=== PATIENT | female | born 2000 | race Two or more races ===

== ENCOUNTER → 2024-02-18 | Outpatient (REF) | payer OTHER ==
[2024-02-18 17:40] LABS: RSV AMPLIFICATION NEGATIVE (NEGATIVE)
== END ==
LOC: M LAB REF 16:25
PROVIDERS: ATTEND Nurse Practitioner Family
DX: J06.9 Acute upper respiratory infection, unspecified (principal)

== ENCOUNTER 2024-03-26 16:30 | Emergency (ER) | payer OTHER ==
[~2024-03-26] VITALS: Ht 162.6 cm; Wt 74.6 kg
[2024-03-26 20:32] VITALS: TEMP 98
[2024-03-26 22:46] VITALS: BP 134/79; O2SAT 100
== END 2024-03-26 23:20 | disposition home or self-care (01) ==
LOC: M ED 16:30
DX: O20.0 Threatened abortion (principal)

== ENCOUNTER → 2024-07-04 | Outpatient (REF) | payer OTHER ==
[2024-07-04 15:18] LABS: Trichomonas vaginalis (AMP) NOT DETECTED (NEGATIVE)
[2024-07-04 15:42] LABS: GC DNA AMPLIFICATION NEGATIVE (NEGATIVE)
== END ==
LOC: M PLALAB 10:07
PROVIDERS: ATTEND Nurse Practitioner Family
DX: Z34.81 Encounter for supervision of other normal pregnancy, first trimester (principal)

== ENCOUNTER → 2024-07-04 | Outpatient (CLI) | payer OTHER ==
[2024-07-04 14:40] LABS: HEMATOCRIT 41.4 % (36.0-47.0); HEMOGLOBIN 13.7 g/dl (12.0-15.5); MEAN CORPUSCULAR HEMOGLOBIN 29.9 pg (27.0-33.0); MEAN CORPUSCULAR HGB CONC 33.1 g/dl (32.0-36.5); MEAN CORPUSCULAR VOLUME 90.4 fl (80.0-96.0); PLATELET COUNT, AUTOMATED 224 10^3/uL (150-450); RED BLOOD COUNT 4.58 10^6/uL (4.00-5.40)
[2024-07-04 15:11] LABS: HIV 1&2 SCREEN NEGATIVE (NEGATIVE)
[2024-07-04 15:20] LABS: HEPATITIS C VIRUS ABY INDEX < 0.02 INDEX (<0.8)
== END ==
LOC: M PLALAB 10:07
PROVIDERS: ATTEND Nurse Practitioner Family
DX: Z34.81 Encounter for supervision of other normal pregnancy, first trimester (principal)

== ENCOUNTER → 2024-07-21 | Outpatient (CLI) | payer OTHER | LOC: M WHC 10:26 | PROVIDERS: ATTEND Obstetrics & Gynecology | DX: Z34.92 Encounter for supervision of normal pregnancy, unspecified, second trimester (principal); Z53.9 Procedure and treatment not carried out, unspecified reason ==

== ENCOUNTER → 2024-08-04 | Outpatient (CLI) | payer OTHER | LOC: M PLALAB 10:05 | PROVIDERS: ATTEND Obstetrics & Gynecology | DX: Z34.92 Encounter for supervision of normal pregnancy, unspecified, second trimester (principal) ==

== ENCOUNTER → 2024-09-11 | Outpatient (CLI) | payer OTHER | LOC: M WHC 09:57 | PROVIDERS: ATTEND Obstetrics & Gynecology | DX: Z34.92 Encounter for supervision of normal pregnancy, unspecified, second trimester (principal); Z3A.18 18 weeks gestation of pregnancy ==